=== PATIENT | female | born 1965 | race Caucasian/White ===

== ENCOUNTER → 2020-02-23 10:13 | Outpatient (CLI) | payer OTHER, SELFPAY ==
--- NOTE | ~2020-02-23 | DEXA_ITS ---
Bone Density Report Name: Meghana Johnson Age: 54 Sex: Female Ethnicity: White Date of : 1965 Indication: postmenopausal; screening for osteoporosis; hysterectomy; Referring Provider: NAYLA, VERONICA Study: Bone densitometry was performed. Exam Date: February 23, 2020 Accession number: [id number] Bone Density: Region BMD T-score Z-score Classification AP Spine (L1-L4) 0.970 -0.7 0.5 Normal Femoral Neck (Left) 0.751 -0.9 0.2 Normal Total Hip (Left) 0.885 -0.5 0.3 Normal Femoral Neck (Right) 0.776 -0.7 0.5 Normal Total Hip (Right) 0.915 -0.2 0.5 Normal Total Hip Mean 0.900 -0.4 0.4 Normal World Health Organization criteria for BMD impression classify patients as: Normal (T-score at or above -1.0), Osteopenia (T-score between -1.0 and -2.5), or Osteoporosis (T-score at or below -2.5). 10-year Fracture Risk: FRAX not reported because: All T-scores for Spine Total, Hip Total, Femoral Neck at or above -1.0 Previous Exams: Region Exam Age BMD T-score BMD Change BMD Change Date g/cm2 vs Baseline vs Previous AP Spine(L1-L4) 02/23/2020 54 0.970 -0.7 -0.038* -0.038* 10/01/2015 49 1.008 -0.4 Total Hip(Left) 02/23/2020 54 0.885 -0.5 -0.015 -0.015 10/01/2015 49 0.900 -0.3 Total Hip(Right) 02/23/2020 54 0.915 -0.2 -0.049* -0.049* 10/01/2015 49 0.964 0.2 *Denotes significance at 95% confidence level, LSC for AP Spine = 0.022 g/cm2, LSC for Total Hip = 0.027 g/cm2 Clinical Information Provided by Patient: Has used the following medications: Vitamin D Has the following medical conditions: Hysterectomy Patient maximum height was 64 Menopause Age: 44 Does not regularly consume dairy products Onset of menses at age 11 Number of children 3 Impression: The patient has normal bone mass. The BMD for the AP Spine(L1-L4) decreased, changing by -0.038 since the last DXA exam. The BMD for the Total Hip(Right) decreased, changing by -0.049 since the last DXA exam. Discussion: BONE DENSITY IS ABOVE THE MINIMUM DESIRABLE LEVEL AT ALL SKELETAL SITES TESTED. This patient?s bone mineral density is above the minimum desirable level (T-score -1.0 or better) at all sites measured. The patient should follow a healthful lifestyle (good nutrition with adequate calcium and vitamin D, and appropriate weight-bearing exercise). Follow-Up: Consider repeating this study in 3 to 4 years to reassess
--- NOTE | ~2020-02-23 | MM_ITS ---
EXAMINATION: MM screening [facility] BI w anthony HISTORY: Screening mammogram TECHNIQUE: Craniocaudal and mediolateral oblique 3-D tomosynthesis images were obtained and synthetic 2-D images were generated. CAD analysis was submitted and interpreted. COMPARISON: 12/27/2018, 11/26/2017, 10/28/2016 BREAST PARENCHYMAL COMPOSITION: There are scattered areas of fibroglandular density. FINDINGS: There is no evidence of suspicious mass, calcification, or architectural distortion to sugg est malignancy in either breast. There has been no suspicious interval change. IMPRESSION: 1. No mammographic evidence of malignancy. 2. Recommend routine screening mammography in one year. BI-RADS Category 1: Negative Reviewed, dictated and finalized at location A. NE REPORTER
== END ==
PROVIDERS: Visit Provider Nurse Practitioner
DX: Z12.31 Encounter for screening mammogram for malignant neoplasm of breast (principal); Z78.0 Asymptomatic menopausal state
CPT/HCPCS: 77063; 77067; 77080

== ENCOUNTER → 2021-04-25 13:27 | Outpatient (CLI) | payer OTHER, SELFPAY ==
--- NOTE | ~2021-04-25 | MM_ITS ---
EXAMINATION: MM screening [facility] w anthony HISTORY: Screening TECHNIQUE: Craniocaudal and mediolateral oblique 3-D tomosynthesis images were obtained and synthetic 2-D images were generated. CAD analysis was submitted and interpreted. COMPARISON: Comparison to multiple prior studies sequentially, with oldest reviewed study dated 10/28. BREAST PARENCHYMAL COMPOSITION: There are scattered areas of fibroglandular density. FINDINGS: There is no evidence of suspicious mass, calcification, or architectural distortion to sugg est malignancy in either breast. There has been no suspicious interval change. IMPRESSION: 1. No mammographic evidence of malignancy. 2. Recommend routine screening mammography in one year. BI-RADS Category 1: Negative Reviewed, dictated and finalized at location A. [employer]IC
== END ==
PROVIDERS: Visit Provider Nurse Practitioner
DX: Z12.31 Encounter for screening mammogram for malignant neoplasm of breast (principal)
CPT/HCPCS: 77063; 77067

== ENCOUNTER → 2022-06-16 07:19 | Outpatient (CLI) | payer OTHER, SELFPAY ==
--- NOTE | ~2022-06-16 | MM_ITS ---
EXAMINATION: MM screening [facility] BI w anthony HISTORY: Screening mammogram TECHNIQUE: Craniocaudal and mediolateral oblique 3-D tomosynthesis images were obtained and synthetic 2-D images were generated. CAD analysis was submitted and interpreted. COMPARISON: 04/25/2021, 02/23/2020, 12/23/2018 bilateral screening mammogram examinations BREAST PARENCHYMAL COMPOSITION: There are scattered areas of fibroglandular density. FINDINGS: There is no evidence of suspicious mass, calcification, or architectural distortion to sugg est malignancy in either breast. There has been no suspicious interval change. IMPRESSION: 1. No mammographic evidence of malignancy. 2. Recommend routine screening mammography in one year. BI-RADS Category 1: Negative Reviewed, dictated and finalized at location A.
== END ==
PROVIDERS: PCP Nurse Practitioner; Visit Provider Nurse Practitioner
DX: Z12.31 Encounter for screening mammogram for malignant neoplasm of breast (principal)
CPT/HCPCS: 77063; 77067

== ENCOUNTER 2023-05-12 07:39 | Day surgery (SDC) | payer OTHER, SELFPAY ==
[2023-03-19 10:59] VITALS: BMI 24.9
[2023-04-23 09:16] VITALS: BMI 23.8
[2023-05-12 08:46] VITALS: BP 121/80; PULSE 55; RESP 12; TEMP 36.6; O2SAT 100
[2023-05-12] MEDS: LACTATED RINGERS 1,000 ML 150 ML IV CONT (08:57)
--- NOTE | 2023-05-12 09:29 | PM.HPGS ---
History of Present Illness History of Present Illness Consent: Risks, benefits, and alternatives have been discussed and questions answered. Patient agrees to proceed with procedure. Chief complaint: Personal History of Colonic Polyps Narrative: Meghana Johnson is a 57 year old female presents for screening colonoscopy. Patient found to have an adenomatous colon polyp in 2016 by previous colonoscopy. Patient reports that her current weight appetite and bowel movements are normal. Denies any blood in her stools. She has no abdominal pain. Family history is noncontributory. Review of Systems Review of Systems: Review of systems is noncontributory. [facility] Past Medical History Medical History (Updated 05/12/23 @ 09:31 by Ignacio Shi MD) delivery delivered Skin cancer Surgical History Surgical History (Updated 12/08/22 @ 09:22 by Joseline Pichardo MA) H/O: hysterectomy History of Mohs surgery for squamous cell carcinoma of skin Family History Family History Father Family history of lung cancer Hypertension Mother Family history of lung cancer Social History Social History (Updated 12/08/22 @ 09:14 by Joseline Pichardo MA) Social History: current caffeine use- 3 cups of coffee per day Smoking status: Never smoker Tobacco type: cigarettes Second hand tobacco smoke exposure: No Alcohol intake: current Drinks per week: 9 Alcohol use details: 2-3 x per week Substance use: never Substance use type: does not use Lack of Transportation: No Lack of Food: Never True Current Housing: I Have Housing Concerned About Future Housing: No Difficulty Paying Gas/Electric Bills: No Difficulty Paying for Meds: No Currently Unemployed: No Education: Associate Degree Difficulty w/ Childcare or Family Care: No Living arrangements: with family Spiritual care concerns: No Meds Home Medications and Allergies Home Medications Medication Instructions Recorded Confirmed Type alprazolam 0.25 mg tablet (Xanax) 0.25 mg PO QHS PRN Anxiety 12/08/22 05/12/23 History ascorbic acid (vitamin C) 250 mg 250 mg PO DAILY 12/08/22 05/12/23 History tablet cholecalciferol (vitamin D3) 25 25 mcg PO DAILY 12/08/22 05/12/23 History mcg (1,000 unit) capsule magnesium citrate,mag oxide 250 mg 250 mg PO DAILY 12/08/22 05/12/23 History capsule mecobalamin (vitamin B12) 1,000 1,000 mcg PO DAILY 12/08/22 05/12/23 History mcg chewable tablet omega 1-wox-jel-fish oil 100 1 cap PO DAILY 12/08/22 05/12/23 History mg-160 mg-1,000 mg capsule (Fish Oil) atorvastatin 10 mg tablet 10 mg PO QHS #90 tabs 12/16/22 05/12/23 Rx Allergies Allergy/AdvReac Type Severity Reaction Status Date / Time No Known Allergies Allergy Verified 05/12/23 08:42 Vital Signs Vital Signs - 24 hr 05/12/23 08:46 Temperature 97.9 F Pulse Rate 55 L Respiratory Rate 12 Blood Pressure 121/80 Pulse Oximetry 100 Oxygen Delivery Room Air Exam Narrative: Physical exam reveals patient to be alert. Vital signs stable. HEENT exam is unremarkable. Patient is anicteric. Lungs are clear to auscultation and to percussion. heart is without murmur or extra sounds. Abdomen bowel sounds are present soft nontender with no organomegaly. Digital external rectal exam is normal. Assessment and Plan Assessment and plan (1) History of colon polyps: Code(s): Z86.010 - Personal history of colonic polyps Status: Acute Assessment and Plan: Patient has a history of colon polyps. Follow-up has been advised at 5 year intervals. Further recommendations may be given after endoscopy.
--- NOTE | 2023-05-12 09:38 | WPDANESEPPF ---
Anes - Initial Pre Proc Eval Procedure: Operation Date: 05/12/23 10:00 Proposed Procedures p Diagnostic Colonoscopy - Ignacio Shi MD Date/Time: 05/12/23 09:38 Surgeon: Ignacio Shi MD Pre Op Diagnosis: Personal History of Colonic Polyps Patient Data Age: 57 Gender: F Height: 1.63 m Weight: 65.7 kg Last Vital Signs Temp 36.6 C 05/12/23 08:46 Pulse 55 L 05/12/23 08:46 Resp 12 05/12/23 08:46 BP 121/80 05/12/23 08:46 Pulse Ox 100 05/12/23 08:46 O2 Del Method Room Air 05/12/23 08:46 Allergies Allergy/AdvReac Type Severity Reaction Status Date / Time No Known Allergies Allergy Verified 05/12/23 08:42 Home Medications Medication Instructions Recorded Confirmed Type alprazolam 0.25 mg tablet (Xanax) 0.25 mg PO QHS PRN Anxiety 12/08/22 05/12/23 History ascorbic acid (vitamin C) 250 mg 250 mg PO DAILY 12/08/22 05/12/23 History tablet cholecalciferol (vitamin D3) 25 25 mcg PO DAILY 12/08/22 05/12/23 History mcg (1,000 unit) capsule magnesium citrate,mag oxide 250 mg 250 mg PO DAILY 12/08/22 05/12/23 History capsule mecobalamin (vitamin B12) 1,000 1,000 mcg PO DAILY 12/08/22 05/12/23 History mcg chewable tablet omega 5-vfw-jkq-fish oil 100 1 cap PO DAILY 12/08/22 05/12/23 History mg-160 mg-1,000 mg capsule (Fish Oil) atorvastatin 10 mg tablet 10 mg PO QHS #90 tabs 12/16/22 05/12/23 Rx Patient hx anesthesia problems: none Family hx anesthesia problems: none Results Review: All pre-operative results and documents have been reviewed as part of the pre-operative evaluation. [facility] Past Medical History Medical History delivery delivered Skin cancer Surgical History Surgical History H/O: hysterectomy History of Mohs surgery for squamous cell carcinoma of skin Family History Family History Father Family history of lung cancer Hypertension Mother Family history of lung cancer Social History Social History Social History: current caffeine use- 3 cups of coffee per day Smoking status: Never smoker Tobacco type: cigarettes Second hand tobacco smoke exposure: No Alcohol intake: current Drinks per week: 9 Alcohol use details: 2-3 x per week Substance use: never Substance use type: does not use Lack of Transportation: No Lack of Food: Never True Current Housing: I Have Housing Concerned About Future Housing: No Difficulty Paying Gas/Electric Bills: No Difficulty Paying for Meds: No Currently Unemployed: No Education: Associate Degree Difficulty w/ Childcare or Family Care: No Living arrangements: with family Spiritual care concerns: No Anes - Eval Final PreProcedure Day of Procedure 05/12/23 09:38 Patient weight: normal Heart: regular rate and rhythm Lungs: clear to auscultation Airway: Mallampati scale class II Neurological: alert and oriented Last oral intake: >/= 8 hours ASA classification: II Emergent: no Anesthetic plan: proceed Anesthesia type and monitoring: general GIVS and standard monitoring Results Review: All pre-operative results and documents have been reviewed as part of the pre-operative evaluation. Informed Consent: The patient's anesthetic plan and its attendant risks and benefits were discussed with the patient/family/POA. Questions were solicited and answers provided to the satisfaction of the patient/family/POA.
[2023-05-12 10:26] VITALS: BP 113/80; PULSE 70; RESP 18; O2SAT 99
[2023-05-12 10:36] VITALS: BP 111/76; PULSE 57; RESP 17; O2SAT 99
[2023-05-12 10:46] VITALS: BP 118/75; PULSE 53; RESP 16; O2SAT 100
--- NOTE | 2023-05-12 10:47 | WPDANESPN ---
Anes - Prog Note Post-Op Date/Time: 05/12/23 10:47 Cardiovascular status: normal Respiratory status: normal Airway patency: baseline Mental status: baseline Post-Op hydration status: normal Vital Signs: Last Vital Signs Temp 36.6 C 05/12/23 08:46 Pulse 57 L 05/12/23 10:36 Resp 17 05/12/23 10:36 BP 111/76 05/12/23 10:36 Pulse Ox 99 05/12/23 10:36 O2 Del Method Room Air 05/12/23 10:36 Pain Score (VAS): 0 I/O: Intake & Output 05/11/23 05/12/23 05/12/23 23:59 07:59 15:59 Intake Total 600 Balance 600 Patient Feedback: Patient satisfied with anesthetic care.
== END 2023-05-12 11:30 | disposition home or self-care (01) ==
PROVIDERS: PCP Family Medicine; Visit Provider Internal Medicine Gastroenterology
PROC: 0DJD8ZZ Inspection of Lower Intestinal Tract, Via Natural or Artificial Opening Endoscopic (ICD-10-PCS; CPT 45378; principal; 2023-05-12 10:00)
DX: Z86.010 Personal history of colon polyps (principal)
CPT/HCPCS: 45378

== ENCOUNTER 2023-06-15 09:11 | Outpatient (CLI) | payer OTHER, SELFPAY ==
[2023-06-15 18:45] LABS: Hematocrit 42.4 % (37.0-47.0); Hemoglobin 13.6 g/dL (12.0-15.0); Mean Corpuscular HGB Conc 32.1 g/dl (32-36); Mean Corpuscular Hemoglobin 30.2 pg (26-34); Mean Platelet Volume 9.7 fl (7.4-10.4); Platelet Count Result 369 k/mm3 (150-375); Red Blood Count 4.51 M/mm3 (4.2-5.4); Red Cell Distribution Width 11.9 % (11.5-14.5); White Blood Count 4.6 K/mm3 (4.5-10.0)
[2023-06-15 19:01] LABS: Alanine Aminotransferase 25 U/L (6-35); Albumin Level 4.7 g/dL (3.5-5.1); Alkaline Phosphatase 68 U/L (38-126); Anion Gap 4 mmol/L (8-16); Aspartate Amino Transferase 54 U/L (14-36); Bilirubin,Total 0.6 mg/dL (0.2-1.3); Blood Urea Nitrogen 14 mg/dL (7-17); Calcium 9.7 mg/dL (8.4-10.2); Carbon Dioxide 31 mmol/L (22-30); Chloride 102 mmol/L (98-107); Cholesterol 208 mg/dL (0-200); Estimated Glomerular Filt Rate > 60; Glucose 91 mg/dL (65-110); HDL Direct 107 mg/dL; Sodium 137 mmol/L (137-145); Triglycerides 60 mg/dL (<150)
[2023-06-15 19:12] LABS: LDL Cholesterol Direct 92 mg/dL
== END 2023-06-15 09:12 | disposition home or self-care (01) ==
LOC: ANHGOSHLAB 09:13
PROVIDERS: PCP Family Medicine; Visit Provider Family Medicine
DX: F41.9 Anxiety disorder, unspecified (principal); E78.5 Hyperlipidemia, unspecified; Z79.899 Other long term (current) drug therapy
CPT/HCPCS: 36415; 80053; 80061; 84443; 85027

== ENCOUNTER 2023-10-01 10:25 | Outpatient (CLI) | payer OTHER, SELFPAY ==
--- NOTE | ~2023-10-01 | MM_ITS ---
EXAMINATION: MM screening [facility] BI w anthony HISTORY: Screening mammogram TECHNIQUE: Craniocaudal and mediolateral oblique 3-D tomosynthesis images were obtained and synthetic 2-D images were generated. CAD analysis was submitted and interpreted. COMPARISON: 06/16/2022, 04/25/2021, 02/23/2020 BREAST PARENCHYMAL COMPOSITION:Not Dense. There are scattered areas of fibroglandular density. FINDINGS: No suspicious mass, calcification, or architectural distortion are identified in either oliverio ast to suggest malignancy. There has been no suspicious interval change. IMPRESSION: No mammographic evidence of malignancy. Recommend routine screening mammography in one year. BI-RADS Category 1: Negative Reviewed, dictated and finalized at location .
== END 2023-10-01 10:26 ==
LOC: MICIMG 10:26
PROVIDERS: PCP Family Medicine; Visit Provider Nurse Practitioner
DX: Z12.31 Encounter for screening mammogram for malignant neoplasm of breast (principal)
CPT/HCPCS: 77063; 77067

== ENCOUNTER 2023-11-09 09:15 | Outpatient (CLI) | payer OTHER, SELFPAY ==
--- NOTE | ~2023-11-09 | XR_ITS ---
Right Hand Technique: PA, oblique, and lateral views were obtained. Clinical History: Soft tissue disorder Findings: No acute fracture or dislocation is seen. Osseous alignment is anatomic. Moderate first CMC joint degenerative changes present. Soft tissues are unremarkable. 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 Reviewed, dictated and finalized at [facility]. 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
== END 2023-11-09 09:16 ==
LOC: GOSHIMG 09:16
PROVIDERS: PCP Family Medicine; Visit Provider Family Medicine
DX: M79.89 Other specified soft tissue disorders (principal); M19.041 Primary osteoarthritis, right hand
CPT/HCPCS: 73130

== ENCOUNTER 2024-07-04 08:07 | Outpatient (CLI) | payer OTHER, SELFPAY ==
--- NOTE | ~2024-07-04 | DEXA_ITS ---
Bone Density Report Name: SLAVA MONREAL Age: 58 Sex: Female Ethnicity: White Date of : 1965 Indication: postmenopausal; screening for osteoporosis; height loss; hysterectomy; Referring Provider: NAYLA, VERONICA Study: Bone densitometry was performed. Exam Date: July 04, 2024 Accession number: [id number] Bone Density: Region BMD T-score Z-score Classification AP Spine(L1-L4) 0.934 -1.0 0.4 Normal Femoral Neck (Left) 0.682 -1.5 -0.2 Osteopenia Total Hip (Left) 0.916 -0.2 0.8 Normal Femoral Neck (Right) 0.739 -1.0 0.3 Normal Total Hip (Right) 0.949 0.1 1.0 Normal Total Hip Mean 0.932 -0.1 0.9 Normal World Health Organization criteria for BMD impression classify patients as: Normal (T-score at or above -1.0), Osteopenia (T-score between -1.0 and -2.5), or Osteoporosis (T-score at or below -2.5). 10-year Fracture Risk(1): Major Osteoporotic Fracture 8.0% Hip Fracture 0.7% Reported Risk Factors: [place] (), Neck BMD=0.682, BMI=23.5 (1) FRAX(R) Version 3.08. Fracture probability calculated for an untreated patient. Fracture probability may be lower if the patient has received treatment. Clinical Information Provided by Patient: Has used the following medications: Vitamin D Has the following medical conditions: Hysterectomy Patient maximum height was 65 Menopause Age: 43 Does not regularly consume dairy products Drinks caffeinated beverages Onset of menses at age 11 Number of children 3 Impression: The patient has low bone mass, based on the Left Femoral Neck T-score. The patient has an estimated ten-year risk of hip fracture of 0.7% and an estimated ten-year risk of major fracture of 8%, based on the WHO FRAX algorithm. Discussion: BONE DENSITY IS LOW AT ONE OR MORE SKELETAL SITES. This patient's lowest T-score is low at one or more skeletal sites. It meets the World Health Organization's (WHO) criteria for ?low bone mass? (T-score between -1.0 and -2.5). The patient's 10-year risk of fracture as calculated by FRAX is less than the threshold where pharmacological therapy is recommended by the National Osteoporosis Foundation (NOF). However, all treatment decisions require clinical judgment and consideration of individual patient factors, including patient preferences, comorbidities, previous drug use, risk factors not captured in the FRAX model (e.g., frailty, falls, vitamin D deficiency, increased bone turnover, interval significant decline in bone density) and possible under or overestimation of fracture risk by FRAX. The patient should follow a healthful lifestyle (good nutrition with adequate calcium and vitamin D, and appropriate weight-bearing exercise). Follow-Up: Consider repeating this study in 2 to 3 years to reassess this patient's status, or sooner if there is some new clinical indication. Reported by: PAIGE on 07/04/2024 8:57:00 AM. Reviewed, dictated and finalized at location AJose [facility]
--- OUTSIDE RECORDS SUMMARY | 2024-07-04 08:14 | XMS_ITS | Clinical Summary ---
Author Organization [facility] Address [address], [facility] [address] [place] [address] Phone Care Team Providers Care Reed Fixer Name Role Phone Provider, Unknown Primary Care Provider Unavaila Ignacio Louis DO Unavailable [phone] Allergies No known active allergies Medications Cholecalciferol (VITAMIN D-3 SUPER STRENGTH) 2000 UNIT Tablet Take by mouth daily. Active Family History Medical History Relation Name Comments Lung Cancer Father Prostate Cancer Father Stroke Father Lung Cancer Mother Relation Name Status Comments Father Mother Social History Tobacco Use Types Packs/Day Years Used Date Smoking Tobacco: Never Alcohol Use Standard Drinks/Week Comments Yes 0 (1 standard drink = 0.6 oz pur e alcohol) Comments Unknown Sex and Gender Information Value Date Recorded Sex Assigned at Not on file Legal Sex Female 5:39 PM CDT Gender Identity Not on file Sexual Orientation Not on file Plan of Treatment Health Maintenance Due Date Last Done Comments Hepatitis C Virus (HCV) Screening 1965 TdaP Immunization 1965 Cologuard 10/08/2013 Immunochemical Fecal Occult Blood 10/08/2013 Mammogram 10/08/2013 Pneumococcal Immunization (5 0+ years) (1 of 1 - PCV) 10/08/2013 Zoster Immunization (1 of 2) 10/08/2013 Influenza Immunization (#1) 2023 SARS-COV-2 Immunization (1 - 2023- season) 2023 Colonoscopy 11/26/2025 11/27/2015 Colorectal Cancer Screening 11/26/2025 Respiratory Syncytial Virus (RSV) Immunization (Adult) (1 - 1-dose 75+ series) 10/08/2038 11/27/2015 Hepatitis B Immunization Aged Out No longer eligible based on patient's age to complete this topic Meningococcal Immunization (ACWY) Aged Out No longer eligible based on patient's age to complete this topic Pneumococcal Immunization Combined Aged Out No longer eligible based on patient's age to complete this topic Rotavirus Immunization Aged Out No lo nger eligible based on patient's age to complete this topic Procedures Procedure Name Priority Date/Time Associated Diagnosis Comments COLONOSCOPY Routine 11/27/2015 from Last 3 Months or Most Recently Relevant to Health Maintenance Results * HM COLONOSCOPY (11/27/2015) us Meghana Cates MD PROCEDURE/MINOR SURGIC AL ORDERABLES Final Result from Last 3 Months or Most Recently Relevant to Health Maintenance Care Teams Reed Fixer Relationship Specialty Start Date End Date Provider, Unknown UNKNOWN PCP - General 11/27/15 Ignacio Chairez DO UNKNOWN Gastroenterology 11/27/15
== END 2024-07-04 08:08 | disposition home or self-care (01) ==
PROVIDERS: PCP Family Medicine; Visit Provider Nurse Practitioner
DX: Z78.0 Asymptomatic menopausal state (principal); M85.852 Other specified disorders of bone density and structure, left thigh
CPT/HCPCS: 77080

== ENCOUNTER 2025-03-22 06:28 | Emergency (ER) | payer OTHER, SELFPAY ==
--- NOTE | ~2025-03-22 | CT_ITS ---
CT ABDOMEN AND PELVIS WITHOUT CONTRAST Clinical History: no BM in 2 weeks Comparison: None Technique: Unenhanced axial images lung bases to symphysis pubis Coronal, sagittal reformats CT images acquired with automatic exposure control for dose reduction DLP: 229 mGy-cm Findings: Without intravenous contrast, sensitivity for detecting visceral parenchymal abnormalities decreased. Lung bases: Clear. Visualized heart and pericardium: Unremarkable. Liver: Unremarkable. Gallbladder: Unremarkable. Spleen: Small hypodense focus, statistically benign. Pancreas: Unremarkable. Adrenal glands: Unremarkable. Kidneys: Right kidney- No hydronephrosis. No renal stones. Left kidney- No hydronephrosis. No renal stones. Distal esophagus/stomach: Unremarkable. Small bowel loops: Normal caliber and wall thickness. Colon: Normal caliber and wall thickness. Normal RLQ appendix. Moderate volume stool. High density stool distally, presumably oral contrast. Nodes: No enlarged nodes. Peritoneum: No ascites. No free intraperitoneal air. Urinary bladder: Unremarkable. Uterus: Absent. Adnexa: No masses. Mild presacral stranding and trace pelvic free fluid. Bones: No acute bony abnormality. Soft tissues: Unremarkable. Unopacified abdominal aorta: No aneurysmal dilatation. IMPRESSION: 1. Mild stercoral colitis not excluded. 2. Probable constipation. 3. Otherwise no acute abnormality. Reviewed, dictated and finalized at location [facility]
[2025-03-22 06:32] VITALS: BP 107/72; PULSE 76; RESP 18; TEMP 36.6; O2SAT 98
--- NOTE | 2025-03-22 07:08 | ED.ABDPAIN ---
HPI - Abdominal Pain General Chief Complaint: Abdominal Pain Stated Complaint: No BM for 2 weeks Time Seen by Provider: 03/22/25 06:57 History of Present Illness HPI narrative: Patient here with constipation for last 2wk; tried laxatives/enemas w/o effect. Related Data Home Medications ?Medication ?Instructions ?Recorded ?Confirmed ?Last Taken ?Type ascorbic acid (vitamin C) 250 mg 250 mg PO DAILY 12/08/22 12/19/24 05/09/23 History tablet cholecalciferol (vitamin D3) 25 25 mcg PO DAILY 12/08/22 12/19/24 05/09/23 History mcg (1,000 unit) capsule magnesium citrate,mag oxide 250 mg 250 mg PO DAILY 12/08/22 12/19/24 05/11/23 History capsule omega 4-woi-akf-fish oil 100 1 cap PO DAILY 12/08/22 12/19/24 05/09/23 History mg-160 mg-1,000 mg capsule (Fish Oil) DIM SGS PO 05/16/24 12/19/24 Unknown History progesterone micronized 200 mg 200 mg PO QHS 05/16/24 12/19/24 Unknown History capsule thyroid (pork) 30 mg tablet ([employer] 30 mg PO DAILY 05/16/24 12/19/24 Unknown History Thyroid) Allergies Allergy/AdvReac Type Severity Reaction Status Date / Time No Known Allergies Allergy Verified 12/19/24 08:28 Review of Systems Review of Systems: All systems reviewed & are unremarkable except as noted in HPI and below PMFSH Past Medical History Medical History delivery delivered Skin cancer Surgical History Surgical History H/O: hysterectomy History of Mohs surgery for squamous cell carcinoma of skin Family History Family History Father Family history of lung cancer Hypertension Mother Family history of lung cancer Social History Social History Social History: current caffeine use- 3 cups of coffee per day Smoking status: Never smoker Tobacco type: cigarettes Second hand tobacco smoke exposure: No Alcohol intake: current Drinks per week: 9 Alcohol use details: 2-3 x per week Substance use: never Substance use type: does not use Lack of Transportation: No Lack of Food: Never True Current Housing: I Have Housing Concerned About Future Housing: No Difficulty Paying Gas/Electric Bills: No Difficulty Paying for Meds: No Currently Unemployed: No Education: Associate Degree Difficulty w/ Childcare or Family Care: No Living arrangements: with family Spiritual care concerns: No Exam Narrative: EXAMINATION OF ORGAN SYSTEMS/BODY AREAS: Constitutional: Vital signs per nursing GENERAL: Appears quite uncomfortable HEAD: Normal with no signs of head trauma. EYES: EOMI, conjunctiva normal ENT: Hearing grossly intact LUNGS: Nonlabored breathing. HEART: Regular rate and rhythm ABD: Soft, nondistended EXT: Normal range of motion SKIN: No rashes or lesions. NEURO: Alert. No gross focal sensory or strength deficits. PSYCH: Normal affect Procedures Rectal Disimpaction Rectal Disimpaction #1: Rectal Disimpaction Date: 03/22/25 Rectal Disimpaction Time: 08:21 Indication: fecal impaction Procedural Sedation: No Sedation/Analgesia: benzodiazepines Technique: manual disimpaction with gloved finger Result: significant stool output Patient Tolerated Procedure: well and no complications Rectal Disimpaction #2: Rectal Disimpaction Date: 03/22/25 Rectal Disimpaction Time: 09:30 Indication: fecal impaction Sedation/Analgesia: benzodiazepines Technique: manual disimpaction with gloved finger Result: significant stool output Patient Tolerated Procedure: well and no complications Complications: none Course Vital Signs Vital signs: Vital Signs Temperature 98 F 03/22/25 06:32 Pulse Rate 76 03/22/25 06:32 Respiratory Rate 18 03/22/25 06:32 Blood Pressure 107/72 03/22/25 06:32 Pulse Oximetry 98 03/22/25 06:32 Oxygen Delivery Room Air 03/22/25 06:32 Temperature 98 F 03/22/25 06:32 Pulse Rate 60 03/22/25 09:15 Respiratory Rate 15 03/22/25 09:15 Blood Pressure 117/69 03/22/25 09:15 Pulse Oximetry 98 03/22/25 09:15 Oxygen Delivery Room Air 03/22/25 06:32 MDM MDM Narrative Medical decision making narrative: Patient presenting with no BM for the last 2 weeks, no abdominal pain or nausea but quite uncomfortable. With shared decision making, offered her either manual disimpaction now, or labs and imaging to ensure no other process happening. Patient opted for labs and imaging 1st. CT is showing possible stercoral colitis, and a lot of constipation. Verbal consent obtained from patient for manual disimpaction. After removing everything I could reach, enema given, then patient attempted to use the commode. She started feeling again as if she cannot pass the stool. Another round of manual disimpaction dislodged a large amount of stool, patient feeling much relief afterwards. She was then able to use the commode and have multiple BMs with relief. Discussed with patient her CT findings, at this time I have very low concern for stercoral colitis given she had no pain, chills or fevers, her labs are completely normal including lactic in WBCs, abdomen is soft nontender. She is requesting to go home at this time, I did give her very strict return precautions in person and on paper given the emergency of stercoral colitis, and will provide prescriptions for constipation. Patient and at bedside agreeable to plan with follow-up to PCP. Differential Diagnosis Differential Diagnosis: Constipation, SBO, etc. Lab Data 03/22/25 07:41 03/22/25 07:41 Labs: Lab Results 03/22/25 Range/Units 07:41 WBC 6.1 (4.5-10.0) K/mm3 RBC 4.22 (4.2-5.4) M/mm3 Hgb 13.3 (12.0-15.0) g/dL Hct 38.2 (37.0-47.0) % MCV 90.5 (80-100) fl MCH 31.5 (26-34) pg MCHC 34.8 (32-36) g/dl RDW 12.4 (11.5-14.5) % Plt Count 336 (150-375) k/mm3 MPV 9.1 (7.4-10.4) fl Immature Gran % (Auto) 0.7 H (0-0.5) % Neut % (Auto) 65.3 (45.5-73.1) % Lymph % (Auto) 25.9 (18.3-44.2) % [place] % (Auto) 7.0 (2.6-8.5) % Eos % (Auto) 0.3 (0-4.4) % Baso % (Auto) 0.8 (0.2-1.2) % Lymph # (Auto) 1.58 (0.9-3.2) K/mm3 [place] # (Auto) 0.4 (0.1-0.6) K/mm3 Eos # (Auto) 0.0 (0-0.3) K/mm3 Baso # (Auto) 0.1 (0.0-0.1) K/mm3 Abs Immat Gran (auto) 0.04 H (0.00-0.031) K/mm3 Absolute Neuts (auto) 4.0 (1.3-6.7) K/mm3 Absolute Nucleated RBC 0.000 (0.0-0.012) K/mm3 Nucleated RBC % 0.0 (0.0-0.2) % Sodium 136 L (137-145) mmol/L Potassium 3.8 (3.4-5.0) mmol/L Chloride 105 (98-107) mmol/L Carbon Dioxide 28 (22-30) mmol/L Anion Gap 3 L (4-12) mmol/L BUN 9 D (7-17) mg/dL Creatinine 0.64 L (0.7-1.0) mg/dL Estim Creat Clear Calc 65 ml/min Estimated GFR > 60 (59 - ) Glucose 92 (65-110) mg/dL Lactic Acid 0.9 (0.7-2.0) mmol/L Calcium 8.6 (8.4-10.2) mg/dL Total Bilirubin 0.7 (0.2-1.3) mg/dL AST 33 (14-36) U/L ALT 24 (6-35) U/L Alkaline Phosphatase 52 (38-126) U/L Total Protein 6.4 (6.3-8.2) g/dL Albumin 4.0 (3.5-5.1) g/dL Imaging Data Radiologist's impression: ITS Impressions Abdomen/Pelvis CT 03/22/25 07:54 IMPRESSION: 1. Mild stercoral colitis not excluded. 2. Probable constipation. 3. Otherwise no acute abnormality. Discharge Plan Discharge Clinical Impression: Constipation, Fecal impaction Patient Disposition: Home Condition: Stable Instructions: Constipation (ED) Additional Instructions: Please follow up with your doctor; you can take the medications as prescribed. If you start experiencing pain, nausea vomiting, fevers or chills, or anything else concerning, come back to the ER immediately. Patient Language: Sinhala Prescriptions: New polyethylene glycol 3350 [Miralax] 17 gram/dose powder 17 g PO DAILY Qty: 238 0RF Daily Fiber (psyllium-aspart) 3 gram powder in packet 1 packet PO DAILY Qty: 54 0RF bisacodyl [Dulcolax (bisacodyl)] 10 mg suppository 10 mg RECTAL DAILY PRN (Reason: constipation) Qty: 12 0RF No Action ascorbic acid (vitamin C) 250 mg tablet 250 mg PO DAILY Fish Oil 100-160-1,000 mg capsule 1 cap PO DAILY magnesium citrate,mag oxide 250 mg capsule 250 mg PO DAILY cholecalciferol (vitamin D3) 25 mcg (1,000 unit) capsule 25 mcg PO DAILY diclofenac sodium 75 mg tablet,delayed release (DR/EC) 75 mg PO BID PRN (Reason: pain) Qty: 60 0RF thyroid (pork) [[employer] ENGLISH [employer]ER Thyroid] 30 mg tablet 30 mg PO DAILY progesterone micronized 200 mg capsule 200 mg PO QHS DIM SGS PO ondansetron HCl 4 mg tablet 4 mg PO Q8H PRN (Reason: nausea and vomiting) Qty: 14 0RF alprazolam [Xanax] 0.25 mg tablet 0.25 mg PO BID PRN (Reason: Anxiety) Qty: 30 2RF buspirone 10 mg tablet 20 mg PO BID 90 Days Qty: 360 1RF escitalopram oxalate 20 mg tablet 20 mg PO DAILY Qty: 90 1RF Follow-up/Referrals: Fredy Alejandra MD [Physician, Gastroenterology] - 2 Days Belkis Flores DO [Primary Care Provider, Family Practice]
[2025-03-22 07:51] LABS: Hematocrit 38.2 % (37.0-47.0); Hemoglobin 13.3 g/dL (12.0-15.0); Immature Granulocyte Percent A 0.7 % (0-0.5); Lymphocytes Absolute Auto 1.58 K/mm3 (0.9-3.2); Mean Corpuscular HGB Conc 34.8 g/dl (32-36); Mean Corpuscular Hemoglobin 31.5 pg (26-34); Mean Corpuscular Volume 90.5 fl (80-100); Nucleated Red Blood Cells Absolute Auto 0.000 K/mm3 (0.0-0.012); Nucleated Red Blood Cells Perc 0.0 % (0.0-0.2); Platelet Count Result 336 k/mm3 (150-375); Red Blood Count 4.22 M/mm3 (4.2-5.4); White Blood Count 6.1 K/mm3 (4.5-10.0)
--- OUTSIDE RECORDS SUMMARY | 2025-03-22 07:52 | XMS_ITS | Clinical Summary ---
Author Organization [facility] Address [address], [facility] [address] [place] [address] Phone Care Team Providers Care Raisin Washer Name Role Phone Provider, Unknown Primary Care Provider Unavaila Ignacio Louis DO Unavailable [phone] Allergies No known active allergies Medications Cholecalciferol [...] (HCV) Screening 1965 TdaP Immunization 1965 Cologuard 10/08/2008 Immunochemical Fecal Occult Blood 10/08/2008 Pneumococcal Immunization (5 0+ years) (1 of 1 - PCV) 10/08/2013 Zoster Immunization (1 of 2) 10/08/2013 Influenza Immunization (#1) 2024 SARS-COV-2 Immunization (1 - 2023- season) 2024 Colonoscopy 11/26/2025 11/27/2015 Colorectal Cancer Screening 11/26/2025 Respiratory Syncytial Virus (RSV) Immunization (Adult) (1 - 1-dose 75+ series) 10/08/2038 Hepatitis B Immunization Aged Out No longer eligible based on patient's age to complete this topic Human Papillomavirus (HPV) Immunization Aged Out No longer eligible b ased on patient's age to complete this topic Meningococcal Immunization (ACWY) Aged Out No longer eligible based on patient's age to complete this topic Rotavirus Immunization Aged Out No lo nger eligible based on patient's age to complete this topic Procedures Procedure Name Priority Date/Time Associated Diagnosis Comments COLONOSCOPY Routine 11/27/2015 from Last 3 Months or Most Recently Relevant to Health Maintenance Results * COLONOSCOPY (11/27/2015) us Meghana Catse MD PROCEDURE/MINOR SURGIC AL ORDERABLES Final Result from Last 3 Months or Most Recently Relevant to Health Maintenance Care Teams Raisin Washer Relationship Specialty Start Date End Date Provider, Unknown UNKNOWN PCP - General 11/27/15 Ignacio Chairez DO UNKNOWN Gastroenterology 11/27/15
[2025-03-22 08:06] VITALS: BP 112/58; PULSE 65; RESP 18; O2SAT 100
[2025-03-22 08:10] LABS: Alanine Aminotransferase 24 U/L (6-35); Albumin Level 4.0 g/dL (3.5-5.1); Alkaline Phosphatase 52 U/L (38-126); Anion Gap 3 mmol/L (4-12); Aspartate Amino Transferase 33 U/L (14-36); Bilirubin,Total 0.7 mg/dL (0.2-1.3); Blood Urea Nitrogen 9 mg/dL (7-17); Calcium 8.6 mg/dL (8.4-10.2); Carbon Dioxide 28 mmol/L (22-30); Chloride 105 mmol/L (98-107); Estimated CRCL calculation 65 ml/min; Estimated Glomerular Filt Rate > 60; Glucose 92 mg/dL (65-110); Potassium 3.8 mmol/L (3.4-5.0); Sodium 136 mmol/L (137-145); Total Protein 6.4 g/dL (6.3-8.2)
[2025-03-22] MEDS: MIDAZOLAM HCL (*CRX) 2 MG/2 ML VIAL IV PUSH (08:12)
[2025-03-22 09:15] VITALS: BP 117/69; PULSE 60; RESP 15; O2SAT 98
== END 2025-03-22 08:35 | disposition home or self-care (01) ==
PROVIDERS: Emergency Provider Emergency Medicine; PCP Family Medicine
DX: K56.41 Fecal impaction (principal); Z85.828 Personal history of other malignant neoplasm of skin; Z90.710 Acquired absence of both cervix and uterus
CPT/HCPCS: 36415; 74176; 80053; 83605; 85025; 96374; 99284; J2250